=== PATIENT | male | born 1965 | race Caucasian/White ===

== ENCOUNTER 2016-10-23 04:21 | Emergency (ER) | payer OTHER ==
[~2016-10-23] VITALS: Ht 185.4 cm; Wt 83.9 kg
[2016-10-23 04:21] VITALS: BP 136/88
[~2016-10-23 04:21] MED LIST: ANTIBIOTIC O500 U/GM T; ASPI-COR81 M1 PO; ATARAX,VISTARIL50 MG PO; CARBIDOPA/LEVOD1 TA1 PO; CATAFLAM50 MG PO; CEPHALEXIN500 M1 PO; CYCLOBENZAPRINE10 MG PO; FLEXERIL5 MG PO; HYDROCODONE BIT1 T11 PO; KEFLEX500 M1 PO; KEFLEX500 MG PO; MOTRIN800 MG PO; Motrin,Rufen800 MG PO; NAPROSYN500 MG PO; PERCOCET 325 MG1 TA2 PO; PIROXICAM20 MG PO; ROBITUSSIN AC 10 MG/ PO; ZOFRAN 4 MG ED2 TAB PO
[2016-10-23] MEDS ORDERED: SUBOXONE 4 MG-1 EACH SL (04:27)
[2016-10-23 05:15] LABS: BASO # 0.1 10*3/uL (0.0-0.1); BASO % 0.7 % (0.0-1.0); EOS # 0.4 10*3/uL (0.0-0.4); EOS % 4.5 % (1.0-4.0); HEMATOCRIT 41.6 % (42.0-52.0); HEMOGLOBIN 13.5 g/dl (14.0-18.0); LYMPH # 2.4 10*3/uL (1.3-4.4); LYMPH % 26.9 % (27.0-41.0); MEAN CELL VOLUME 91.2 fl (80.0-94.0); MEAN CORPUSCULAR HGB 29.6 pg (27.0-31.0); MEAN CORPUSCULAR HGB CONC 32.5 g/dl (33.0-37.0); MONO # 0.8 10*3/uL (0.1-1.0); MONO % 8.8 % (3.0-9.0); NEUT # 5.3 10*3/uL (2.3-7.9); NEUT % 58.8 % (47.0-73.0); PLATELET COUNT AUTOMATED 218 10*3/uL (130-400); RED BLOOD COUNT 4.56 10*6/uL (4.50-5.90)
[2016-10-23 05:30] LABS: ALBUMIN 3.5 gm/dl (3.1-4.5); ALKALINE PHOSPHATASE 97 U/L (45-117); BILIRUBIN, TOTAL 0.2 mg/dl (0.2-1.0); BUN 18 mg/dl (7-24); CARBON DIOXIDE 28 mmol/L (21-32); CHLORIDE 108 mmol/L (98-107); EST GLOM FILT AFRICAN AMERICAN > 60 ml/min; GLUCOSE 116 mg/dL (65-99); SGOT/AST 25 IU/L (3-35); SGPT/ALT 27 U/L (12-78); SODIUM 146 mmol/L (136-145)
[2016-10-23] MEDS ORDERED: Cleocin150 MG PO (05:35)
[2016-10-23] MEDS ORDERED: CLINDAMYCIN150 MG PO (05:40)
== END 2016-10-23 05:57 | disposition home or self-care (01) ==
LOC: ED 04:21
PROVIDERS: Student in an Organized Health Care Education/Training Program
DX: K04.7 Periapical abscess without sinus (principal); L03.211 Cellulitis of face; F17.200 Nicotine dependence, unspecified, uncomplicated; Z98.890 Other specified postprocedural states

== ENCOUNTER → 2017-07-31 | Outpatient (CLI) | payer OTHER ==
[~2017-07-31] MED LIST changes: +CLINDAMYCIN150 MG PO; +Cleocin150 MG PO; +SUBOXONE 4 MG-1 EACH SL
[2017-07-31 17:54] LABS: URINE AMPHETAMINES < 1000 (1000ng/ml); URINE BARBITURATES < 200 (200ng/ml); URINE BENZODIAZEPINES < 200 (200ng/ml); URINE CANNABINOIDS (THC) < 50 (50ng/ml); URINE COCAINE < 300 (300ng/ml); URINE METHADONE < 300 (300ng/ml); URINE OPIATES < 300 (300ng/ml)
[2017-07-31 17:55] LABS: URINE PHENCYCLIDINE < 25 (25ng/ml)
== END | disposition home or self-care (01) ==
LOC: LAB 16:34
PROVIDERS: Internal Medicine
DX: F11.29 Opioid dependence with unspecified opioid-induced disorder (principal)

== ENCOUNTER 2018-01-28 19:12 | Emergency (ER) | payer OTHER ==
[~2018-01-28] VITALS: Ht 182.8 cm; Wt 90.7 kg
[2018-01-28 20:02] LABS: BASO % 0.2 % (0.0-1.0); EOS # 0.1 10*3/uL (0.0-0.4); EOS % 0.8 % (1.0-4.0); HEMATOCRIT 33.8 % (42.0-52.0); HEMOGLOBIN 11.1 g/dl (14.0-18.0); LYMPH # 1.6 10*3/uL (1.3-4.4); LYMPH % 11.7 % (27.0-41.0); MEAN CELL VOLUME 91.4 fl (80.0-94.0); MEAN CORPUSCULAR HGB CONC 32.8 g/dl (33.0-37.0); MEAN PLATELET VOLUME 9.1 fl (9.6-12.3); MONO % 7.2 % (3.0-9.0); NEUT # 10.5 10*3/uL (2.3-7.9); NEUT % 79.6 % (47.0-73.0); PLATELET COUNT AUTOMATED 322 10*3/uL (130-400); RED CELL DISTRI WIDTH 12.6 % (0-14.5); WHITE BLOOD COUNT 13.2 10*3/uL (4.8-10.8)
[2018-01-28 20:18] LABS: ALBUMIN 3.1 gm/dl (3.1-4.5); ALKALINE PHOSPHATASE 85 U/L (45-117); BUN 14 mg/dl (7-24); CHLORIDE 101 mmol/L (98-107); CREATININE 0.86 mg/dL (0.70-1.30); POTASSIUM 3.5 mmol/L (3.5-5.1); SGOT/AST 19 IU/L (3-35); SGPT/ALT 21 U/L (12-78); SODIUM 137 mmol/L (136-145)
[2018-01-28 20:26] LABS: TROPONIN I < 0.015 ng/ml (<0.045)
[2018-01-28 21:10] VITALS: BP 115/64
[2018-01-28] MEDS ORDERED: PROAIR HFA8.5 GM INH (21:30)
[2018-01-28] MEDS ORDERED: LEVAQUIN750 M1 PO (21:30)
[2018-01-28] MEDS ORDERED: PREDNISONE20 M1 PO (21:30)
== END 2018-01-28 21:33 | disposition left against medical advice (07) ==
LOC: ED 19:12
PROVIDERS: Nurse Practitioner Family
DX: J18.9 Pneumonia, unspecified organism (principal); R09.02 Hypoxemia; F17.200 Nicotine dependence, unspecified, uncomplicated; Z98.890 Other specified postprocedural states; Z79.899 Other long term (current) drug therapy

== ENCOUNTER 2018-06-19 10:01 | Emergency (ER) | payer OTHER ==
[~2018-06-19] VITALS: Wt 86.2 kg
[~2018-06-19 10:01] MED LIST changes: +LEVAQUIN750 M1 PO; +PREDNISONE20 M1 PO; +PROAIR HFA8.5 GM INH
[2018-06-19 10:03] VITALS: BP 142/79
[2018-06-19] MEDS ORDERED: AUGMENTIN 500500 M1 PO (10:34)
== END 2018-06-19 12:16 | disposition home or self-care (01) ==
LOC: ED 10:01
DX: S01.432A Puncture wound without foreign body of left cheek and temporomandibular area, initial encounter (principal); R03.0 Elevated blood-pressure reading, without diagnosis of hypertension; F17.200 Nicotine dependence, unspecified, uncomplicated; Z79.899 Other long term (current) drug therapy; Z79.2 Long term (current) use of antibiotics; X58.XXXA Exposure to other specified factors, initial encounter; Y93.89 Activity, other specified; Y92.89 Other specified places as the place of occurrence of the external cause; Y99.8 Other external cause status

== ENCOUNTER → 2019-03-31 | Outpatient (CLI) | payer OTHER ==
[~2019-03-31] MED LIST changes: +AUGMENTIN 500500 M1 PO
== END | disposition home or self-care (01) ==
LOC: NM 03-30 07:00
DX: E05.90 Thyrotoxicosis, unspecified without thyrotoxic crisis or storm (principal)

== ENCOUNTER 2019-08-06 05:18 | Emergency (ER) | payer SELFPAY ==
[~2019-08-06] VITALS: Wt 99.8 kg
[2019-08-06 06:20] LABS: BASO # 0.1 10*3/uL (0.0-0.1); BASO % 0.4 % (0.0-1.0); EOS # 0.1 10*3/uL (0.0-0.4); EOS % 1.1 % (1.0-4.0); HEMATOCRIT 47.9 % (42.0-52.0); HEMOGLOBIN 15.9 g/dl (14.0-18.0); LYMPH # 1.3 10*3/uL (1.3-4.4); LYMPH % 10.3 % (27.0-41.0); MEAN CELL VOLUME 91.2 fl (80.0-94.0); MEAN CORPUSCULAR HGB 30.3 pg (27.0-31.0); MEAN CORPUSCULAR HGB CONC 33.2 g/dl (33.0-37.0); MEAN PLATELET VOLUME 10.1 fl (9.6-12.3); MONO # 0.9 10*3/uL (0.1-1.0); MONO % 7.1 % (3.0-9.0); NEUT # 10.5 10*3/uL (2.3-7.9); NEUT % 80.8 % (47.0-73.0); PLATELET COUNT AUTOMATED 258 10*3/uL (130-400); RED BLOOD COUNT 5.25 10*6/uL (4.50-5.90); RED CELL DISTRI WIDTH 12.5 % (0-14.5); WHITE BLOOD COUNT 12.9 10*3/uL (4.8-10.8)
[2019-08-06 07:54] LABS: ALBUMIN 3.8 gm/dl (3.1-4.5); ALKALINE PHOSPHATASE 94 U/L (45-117); BUN 20 mg/dl (7-24); CHLORIDE 106 mmol/L (98-107); CREATININE 0.99 mg/dL (0.70-1.30); LIPASE 54 U/L (73-393); POTASSIUM 4.7 mmol/L (3.5-5.1); SGOT/AST 24 IU/L (3-35); SGPT/ALT 23 U/L (12-78); SODIUM 139 mmol/L (136-145); TOTAL PROTEIN 7.5 gm/dL (6.4-8.2)
[2019-08-06 09:34] VITALS: BP 156/78
[2019-08-06 10:57] LABS: BILIRUBIN NEGATIVE (NEGATIVE); BLOOD TRACE-INTACT (NEGATIVE); CLARITY SL CLOUDY (CLEAR); COLOR YELLOW (YELLOW); GLUCOSE NEGATIVE (NEGATIVE); KETONE TRACE (NEGATIVE); LEUKO ESTERASE NEGATIVE (NEGATIVE); NITRITE NEGATIVE (NEGATIVE); PH 6.5 (5.0-9.0); SPECIFIC GRAVITY <= 1.005 (1.005-1.030)
[2019-08-06 11:05] LABS: URINE AMPHETAMINES < 1000 (1000ng/ml); URINE BARBITURATES < 200 (200ng/ml); URINE BENZODIAZEPINES < 200 (200ng/ml); URINE CANNABINOIDS (THC) < 50 (50ng/ml); URINE COCAINE < 300 (300ng/ml); URINE METHADONE < 300 (300ng/ml); URINE OPIATES < 300 (300ng/ml)
[2019-08-06 11:06] LABS: URINE PHENCYCLIDINE < 25 (25ng/ml)
[2019-08-06 11:07] LABS: CALCIUM OXALATE CRYSTALS 1+
[2019-08-06] MEDS ORDERED: FLAGYL500 MG PO ×2 (11:21→11:36)
[2019-08-06] MEDS ORDERED: CIPRO500 MG PO ×2 (11:21→11:36)
[2019-08-06] MEDS ORDERED: ZOFRAN4 MG PO ×2 (11:21→11:36)
== END 2019-08-06 11:32 | disposition home or self-care (01) ==
LOC: ED 05:18
PROVIDERS: Emergency Medicine
DX: S51.811A Laceration without foreign body of right forearm, initial encounter (principal); K57.92 Diverticulitis of intestine, part unspecified, without perforation or abscess without bleeding; R11.2 Nausea with vomiting, unspecified; F17.200 Nicotine dependence, unspecified, uncomplicated; W22.8XXA Striking against or struck by other objects, initial encounter; Y93.89 Activity, other specified; Y92.89 Other specified places as the place of occurrence of the external cause; Y99.8 Other external cause status

== ENCOUNTER 2020-02-28 20:30 | Emergency (ER) | payer SELFPAY ==
[~2020-02-28] VITALS: Ht 185.4 cm; Wt 91.6 kg
[~2020-02-28 20:30] MED LIST changes: +CIPRO500 MG PO; +FLAGYL500 MG PO; +ZOFRAN4 MG PO
[2020-02-28 20:37] VITALS: BP 124/74
[2020-02-28] MEDS ORDERED: PREDNISONE50 MG PO (22:13)
== END 2020-02-28 22:28 | disposition home or self-care (01) ==
LOC: ED 20:30
DX: M79.89 Other specified soft tissue disorders (principal); M25.561 Pain in right knee; Z79.899 Other long term (current) drug therapy

== ENCOUNTER 2025-01-28 10:54 | Emergency (ER) | payer MEDICAID ==
[~2025-01-28] VITALS: Ht 185.4 cm; Wt 90.7 kg
[~2025-01-28 10:54] MED LIST changes: +PREDNISONE50 MG PO
[2025-01-28 10:59] VITALS: BP 149/74
[2025-01-28] MEDS ORDERED: Bacitracin Zinc 14 GM TUBE T ONE (11:45)
[2025-01-28] MEDS ORDERED: Tdap Vaccine 0.5 ML SYR (Adult Vaccine) IM ONE (11:45)
[2025-01-28] MEDS ORDERED: CEPHALEXIN 500 MG CAP PO ONE (11:45)
[2025-01-28] MEDS ORDERED: CEPHALEXIN500 M1 PO (11:45)
== END 2025-01-28 12:13 | disposition home or self-care (01) ==
LOC: ED 10:54
DX: S61.411A Laceration without foreign body of right hand, initial encounter (principal); F17.200 Nicotine dependence, unspecified, uncomplicated; Z79.899 Other long term (current) drug therapy; Z98.890 Other specified postprocedural states; W27.0XXA Contact with workbench tool, initial encounter; Y93.89 Activity, other specified; Y92.89 Other specified places as the place of occurrence of the external cause; Y99.8 Other external cause status

== ENCOUNTER 2025-02-07 08:42 | Emergency (ER) | payer MEDICAID ==
[2025-02-07 08:47] VITALS: BP 146/74
== END 2025-02-07 09:06 | disposition home or self-care (01) ==
LOC: ED 08:42
DX: S61.411D Laceration without foreign body of right hand, subsequent encounter (principal); F17.200 Nicotine dependence, unspecified, uncomplicated; Z79.899 Other long term (current) drug therapy; Z98.890 Other specified postprocedural states; X58.XXXD Exposure to other specified factors, subsequent encounter